=== PATIENT | female | born 1955 | race Caucasian/White ===

== ENCOUNTER → 2017-01-31 | Outpatient (CLI) | payer BC ==
[~2017-01-31] MED LIST: ACET125T2 PO; Areds 2 PO; BROM0.8T PO; CA C1TAB34 PO; CHOL5000 PO; DIPH25CA61 PO; FEXO1TAB29 PO; GLIM4TAB2 PO; INSU100C5 SQ-INSULIN; INSU100I32 SQ; LEVO125T5 PO; LIOT5TAB3 PO; LIRA0.6P SC; MAGN250T PO; MELA10CA PO; MELA10TA PO; METF10002 PO; MULT-516 PO; PRAM0.5T5 PO; RANI-276 PO; [UNRECOGNIZED DRUG - OTHER] PO
== END | disposition home or self-care (01) ==
LOC: STAR 11:14
PROVIDERS: ATTEND Surgery
DX: Z01.818 Encounter for other preprocedural examination (principal)
CPT/HCPCS: 36415; 80053; 85025

== ENCOUNTER 2017-02-07 08:11 | Day surgery (SDC) | payer BC ==
[~2017-02-07] VITALS: Ht 167.6 cm; Wt 101.9 kg
[~2017-02-07 08:11] MED LIST changes: -MAGN250T PO; +MAGN250T2 PO
[2017-02-07] MEDS ORDERED: LACTATED RINGERS 1,000 ML IV SCH (09:00)
[2017-02-07 09:30] VITALS: BP 155/90
[2017-02-07] MEDS ORDERED: MIDAZOLAM 1 MG/ML, 2ML ONE (10:31)
[2017-02-07] MEDS ORDERED: FENTANYL PF 100 MCG/2ML ONE ×4 (10:31→12:35)
[2017-02-07] MEDS ORDERED: BUPIVACAINE/PF 0.25% ONE (11:00)
[2017-02-07] MEDS ORDERED: EPINEPHRINE 1 MG/ML, 1ML ONE (11:00)
[2017-02-07] MEDS ORDERED: LABETALOL 5MG/ML 40ML VIAL ONE (11:15)
[2017-02-07] MEDS ORDERED: ONDANSETRON 2MG/ML, 2ML ONE (11:15)
[2017-02-07] MEDS ORDERED: NEOSTIGMINE 1 MG/ML, 10ML ONE (11:15)
[2017-02-07] MEDS ORDERED: CEFOTETAN 2 GM ONE (11:15)
[2017-02-07] MEDS ORDERED: ROCURONIUM 10 MG/ML ONE (11:15)
[2017-02-07] MEDS ORDERED: PROPOFOL 10 MG/ML, 20ML ONE (11:15)
[2017-02-07] MEDS ORDERED: GLYCOPYRROLATE 0.2MG/1ML ONE (11:15)
[2017-02-07] MEDS ORDERED: ACETAMINOPHEN 325 MG TABLET PO PRN (11:30)
[2017-02-07] MEDS ORDERED: MEPERIDINE/PF 25MG/0.5ML IVPush PRN (11:30)
[2017-02-07] MEDS ORDERED: FENTANYL PF 100 MCG/2ML IV PRN (11:30)
[2017-02-07] MEDS ORDERED: HYDROmorphone 1 MG/ML, 1ML IV PRN (11:30)
[2017-02-07] MEDS ORDERED: PROMETHAZINE 25 MG/ML, 1ML IV PRN (11:30)
[2017-02-07] MEDS ORDERED: OXYcodone 5 MG/5 ML ORAL.SOL UDC PO PRN (11:30)
[2017-02-07] MEDS ORDERED: ONDANSETRON 2MG/ML, 2ML IVPush PRN (11:30)
[2017-02-07] MEDS ORDERED: BUPIVACAINE/PF-EPI 0.25% 1:200K INFIL ONE (11:36)
[2017-02-07] MEDS ORDERED: INSULIN SINGLE DOSE, ER SQ-INSULIN ONE (12:22)
[2017-02-07] MEDS ORDERED: INSULIN REGULAR 100 UNITS/ML, 3ML VIAL SQ-INSULIN ONE (12:30)
[2017-02-07] MEDS ORDERED: HYDROcodone/APAP 7.5-325MG/15ML UDC ONE (12:35)
[2017-02-07] MEDS ORDERED: HYDROcodone/APAP 7.5-325MG/15ML UDC PO PRN (13:00)
== END 2017-02-07 15:25 ==
LOC: OUT 08:11 → MERGE 10:30 → OUT 15:25
PROVIDERS: ATTEND Surgery
DX: K80.20 Calculus of gallbladder without cholecystitis without obstruction (principal); F32.9 Major depressive disorder, single episode, unspecified; K21.9 Gastro-esophageal reflux disease without esophagitis; I10 Essential (primary) hypertension; Z86.39 Personal history of other endocrine, nutritional and metabolic disease; Z98.890 Other specified postprocedural states; Z80.3 Family history of malignant neoplasm of breast; Z80.1 Family history of malignant neoplasm of trachea, bronchus and lung; Z80.8 Family history of malignant neoplasm of other organs or systems; Z87.39 Personal history of other diseases of the musculoskeletal system and connective tissue; Z72.89 Other problems related to lifestyle; Z87.891 Personal history of nicotine dependence
CPT/HCPCS: 47562; 82962; 88304; J0171; J2250; J2405; J2704; J2710; J3010; J3490; J7120; S0074

== ENCOUNTER → 2017-03-14 | Outpatient (CLI) | payer BC | END | disposition home or self-care (01) | LOC: CFH 15:14 | PROVIDERS: ATTEND Family Medicine | DX: R60.0 Localized edema (principal) ==